=== PATIENT | male | born 1960 | race Caucasian/White ===

== ENCOUNTER 2017-07-25 19:25 | Emergency (ER) | payer OTHER ==
[~2017-07-25] VITALS: Ht 170.2 cm; Wt 72.7 kg
[2017-07-25] MEDS ORDERED: KETOROLAC TROMETHAMINE 60 MG/2 ML VIAL IM ONE (21:15)
[2017-07-25] MEDS ORDERED: PredniSONE 20 MG TABLET PO ONE (21:15)
[2017-07-25] MEDS ORDERED: SULFAMETHOX/TRIMETH DS 800-160 MG/TABLET PO ONE (21:15)
[2017-07-25 21:58] VITALS: BP 120/89
[2017-07-26] MEDS ORDERED: HEPARIN SODIUM 1000 UNITS/NS 500 ML ONE (10:19)
== END 2017-07-25 21:59 | disposition home or self-care (01) ==
LOC: EMS 19:27
DX: S50.12XA Contusion of left forearm, initial encounter (principal); M70.22 Olecranon bursitis, left elbow; I10 Essential (primary) hypertension; F17.210 Nicotine dependence, cigarettes, uncomplicated; Z88.0 Allergy status to penicillin; W01.0XXA Fall on same level from slipping, tripping and stumbling without subsequent striking against object, initial encounter; Y93.89 Activity, other specified; Y92.89 Other specified places as the place of occurrence of the external cause; Y99.8 Other external cause status
CPT/HCPCS: 73080; 73090; 96372; 99284; 99406; J1885; J7512; J1644